=== PATIENT | male | born 1980 | race Hispanic/Latino ===

== ENCOUNTER 2018-12-17 23:09 | Emergency (ER) | payer BC ==
[~2018-12-17] VITALS: Ht 177.8 cm; Wt 68.0 kg
--- OUTSIDE RECORDS SUMMARY | 2018-12-17 23:13 | XMS REPORT | Encounter Summary ---
Author Organization Unknown Address [address] [place] [address] Phone [phone] Reason for Visit Medical Complaint Instructions 1. Allergic rhinitis allergies: care instructions rapid flu (A+B) 2. Allergic cough benzonatate 200 mg capsule prednisone 20 mg tablet Discussion Note Pt is in NAD; Verbalizes understanding of all instructions with no questions at this time. Plan of Care Patient Instructions Take fluticasone over the counter as needed for congestion. [place] one spray in each nostril twice a day. Take a warm, steamy shower, blow your nose thereafter, and spray in each nostril. Tilt your head up for about 10 seconds and breath through your mouth. Do not sniff or snort the medication in or else the medication will go to your throat and not be absorbed appropriately. Take over the counter Xyzal, zyrtec, vicky or claritin for allergy like symptoms like runny nose, sneezing and watery eyes. Take Benzonatate for cough as directed. Take steroid taper as directed and with food to avoid heartburn. Take medications as prescribed and follow up with a PCP within 2-3 if symptoms worsen as discussed. Reminders Provider Appointments None recorded. Lab Rapid Flu (A+B) 09/07/2017 [facility] Referral None recorded. Procedures None recorded. Surgeries None recorded. Imaging None recorded. Medications Name Start Date benzonatate 200 mg capsule Take 1 capsule 3 times a day by oral route as needed. prednisone 20 mg tablet take 3 tabs PO QD X 2 days, then take 2 tabs PO QD x 2 days, then take 1 tabs PO QD x 2 days. Medications Administered None recorded. Vitals Height Weight BMI Blood Pressure 5 ft 8 in 155 lbs 23.6 kg/m2 120/82 mm[Hg] Lab Results Date Name Specimen Result Interpretation Description Value Range Status Address Rapid Flu (A+B) Influenza a negative [facility]: [address] [place] [address] Influenza B negative [facility]: [facility] Allergies Code Code System Name Reaction Severity Status Onset NKDA Problems None recorded. Procedures None recorded. Vaccine List None recorded. Social History Smoking Status Never Smoker Past Encounters 09/07/2017 Allergic Rhinitis; Allergic Cough Afsaneh Watkinsroy, [facility]: [address] [place] [address], Ph. History of Present Illness Cough Reported By: Patient HPI: Location: chest, nasal/sinus. Quality: dry cough. Duration: symptoms lasting over 2 weeks. Severity: moderate. Onset/Timing: gradual. Context: no sick contacts, no foreign travel, non-smoker, allergies. Modifying factors: ; none. Associated Symptoms: no sputum production, no shortness of breath, no wheezing, no sweats, no significant weight gain, no significant weight loss, no morning cough, no sore throat, no vomiting, no diarrhea, no rash, no nausea, no fever/chills, no muscle aches, no headache; post nasal drip and dry cough [id number] Reported By: Patient HPI: Location: head/sinuses, chest. Quality: dry cough; post nasal drip. Duration: ; x 2-3 weeks. Severity: moderate. Onset/Timing: gradual. Context: no sick contacts, no foreign travel, non-smoker, allergies. Modifying factors: ; none. Associated Symptoms: no sputum production, no shortness of breath, no wheezing, no change in number of pillows needed to sleep at night, no sweats, no significant weight gain, no significant weight loss, no morning cough, no sore throat, no vomiting, no diarrhea, no rash, no nausea, no fever, no muscle aches, no headache; post nasal drip and dry cough Review of Systems:ROS as noted in the HPI Review of Systems Basic Reported By: Patient Physical Exam Adult Basic, 14-21 Yr Male, Adult Male Complete Reported By: Patient Constitutional: General Appearance: healthy-appearing, well-nourished, well-developed. Level of Distress: NAD. Ambulation: ambulating normally Psychiatric: Mental Status: active and alert. Orientation: to time, to place, to person Cob-Cvug-Nfado-Throat: Ears: no lesions on external ear, no outer ear tenderness, EACs clear, TMs clear. Hearing: no hearing loss. Nose: no lesions on external nose, nares patent, no septal deviation, nasal passages clear, no sinus tenderness, nasal discharge--rhinorrhea, post nasal drip; pale and edematous nasal turbinates bilaterally. Lips, Teeth, and Gums: no mouth or lip ulcers, no bleeding gums, normal dentition. Oropharynx: moist mucous membranes, no erythema, no exudates, tonsils not enlarged Neck: Lymph Nodes: no cervical LAD Lungs: Respiratory effort: no dyspnea, no tachypnea, no use of accessory muscles, no intercostal retractions. Auscultation: breath sounds normal Cardiovascular: Heart Auscultation: RRR, no murmurs Neurologic: Gait and Station: normal gait, normal station
--- OUTSIDE RECORDS SUMMARY | 2018-12-17 23:13 | XMS REPORT | Continuity of Care Document ---
Author Author [facility] Interface Address Unknown Phone Unavailable Problems Problem Status Onset Date Classification Date Reported Comments Source Allergic rhinitis 09/07/2017 Diagnosis 09/07/2017 [facility] Allergic cough 09/07/2017 Diagnosis 09/07/2017 [facility] Medications Medication Details Route Status Patient Instructions Ordering Provider Order Date Source benzonatate 200 MG Oral Capsule benzonatate 200 mg capsule Take 1 capsule 3 times a day by oral route as needed. Active [facility] Prednisone 20 MG Oral Tablet prednisone 20 mg tablet take 3 tabs PO QD X 2 days, then take 2 tabs PO QD x 2 days, then take 1 tabs PO QD x 2 days. Active [facility] Allergies, Adverse Reactions, Alerts Substance Category Reaction Severity Reaction type Status Date Reported Comments Source Immunizations Immunization Date Given Site Status Last Updated Comments Source Results Order Name Results Value Reference Range Date Interpretation Comments Source Influenza A negative 09/07/2017 [facility] Influenza B negative 09/07/2017 [facility] Vital Signs Vital Sign Value Date Comments Source Diastolic (mm Hg) 82 09/07/2017 [facility] Height 68 09/07/2017 [facility] Systolic (mm Hg) 120 09/07/2017 [facility] Weight 155 09/07/2017 [facility] Encounters Location Location Details Encounter Type Encounter Number Reason For Visit Attending Provider ADM Date DC Date Status Source [place] - [facility] - [id number] Ramirez, [employer]PORATE [employer]AF[employer]Y COORDINATOR[facility] [address] [facility] [place] [address], Ph. [id number] Afsaneh Ramirez 09/07/2017 [facility] Procedures Procedure Code Date Perfomer Comments Source
--- OUTSIDE RECORDS SUMMARY | 2018-12-17 23:13 | XMS REPORT | Clinical Summary ---
Author Author [facility] Address Unknown Phone Unavailable Care Team Providers Care Carbide Tool Maker Name Role Phone Duran Mayer MD PCP Allergies No Known Allergies Medications End Date Status Medication Sig Dispensed Refills Start Date Active ibuprofen (ADVIL,MOTRIN) Take 200 mg 0 200 MG tablet by mouth every 6 (six) hours as needed for mild pain. Active cetirizine (ZyrTEC) 10 MG Take 10 mg by 0 tablet mouth daily. Active dextromethorphan Take 10 mL by 0 polistirex (COUGH DM ER mouth every ORAL) 12 (twelve) hours as needed (cough). 11/07/2018 Discontinued oseltamivir (TAMIFLU) 75 TK 1 C PO BID 0 MG capsule FOR 5 DAYS 9 11/11/2018 Discontinued mouthwash compounding 15 mL by 480 mL 1 base 227 (MOUTHWASH-OM) mucous 9 mouthwash membrane route 4 (four) times a day for 10 days. 11/10/2018 Discontinued lidocaine HCl (lidocaine) 5 mL by 100 mL 2 2 % solution mucous 9 membrane route every 3 (three) hours. 11/11/2018 Discontinued lidocaine HCl (lidocaine) 5 mL by 100 mL 2 2 % solution mucous 9 membrane route every 3 (three) hours. 11/26/2018 acyclovir (ZOVIRAX) 400 Take 1 tablet 30 tablet 0 MG tablet (400 mg 9 total) by mouth 3 (three) times a day for 10 days. 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 Office Visit Family Medicine Micky Jo MD Oral mucositis (Primary Dx) 11/17/2018 Office Visit Otolaryngology RogelioarsenЮлия MA 11/16/2018 Telephone Family Medicine Duran Mayer MD Well adult health check (Primary Dx); Screen for STD (sexually transmitted disease) 11/11/2018 Office Visit Family Medicine Micky Jo MD Oral mucosal lesion (Primary Dx); Oral mucositis 11/10/2018 Office Visit Otolaryngology Duran Mayer MD Viral illness (Primary Dx) 11/07/2018 Office Visit Family Medicine Micky Jo MD Stomatitis and mucositis (Primary Dx) 11/07/2018 Office Visit Otolaryngology Micky Jo MD Oral mucosal lesion (Primary Dx) 11/03/2018 Office Visit Otolaryngology Duran Mayer MD Sore throat (Primary Dx) 11/03/2018 Office Visit Family Medicine after 12/16/2017 Family History Medical History Relation Name Comments Hypertension Father No Known Problems Mother Relation Name Status Comments Father Alive Mother Alive Social History Date Tobacco Use Types Packs/Day Years Used Never Smoker Smokeless Tobacco: Never Used Alcohol Use Drinks/Week oz/Week Comments Yes 4 Cans of 2.4 4 can a day and on the weekend more beer Sex Assigned at Date Recorded Not on file Industry Job Start Date Occupation Not on file Not on file Not on file Travel End Travel History Travel Start No recent travel history available. Last Filed Vital Signs Time Taken Vital Sign Reading 11/17/2018 3:21 PM CDT Blood Pressure 136/84 11/17/2018 3:21 PM CDT Pulse 73 11/11/2018 11:49 AM CDT Temperature 36.6 C (97.8 F) - Respiratory Rate - 11/17/2018 3:21 PM CDT Oxygen Saturation 98% - Inhaled Oxygen - Concentration 11/17/2018 3:21 PM CDT Weight 67.9 kg (149 lb 12.8 oz) 11/17/2018 3:21 PM CDT Height 172.7 cm (5' 8") 11/17/2018 3:21 PM CDT Body Mass Index 22.78 Plan of Treatment Health Maintenance Due Date Last Done Comments INFLUENZA VACCINE 11/12/2019 Postponed from 03/23/2019 (Patient Refused) Procedures Comments Procedure Name Priority Date/Time Associated Diagnosis CHLAMYDIA/N. GONORRHOEAE Routine 11/11/2018 Screen for STD (sexually RNA, TMA 12:20 PM CDT transmitted disease) HSV TYPE 1/2 COMBINED AB, Routine 11/11/2018 IGM 12:20 PM CDT HSV 1 AND 2 SPECIFIC AB Routine 11/11/2018 IGG 12:20 PM CDT HEPATITIS C ANTIBODY Routine 11/11/2018 Screen for STD (sexually 12:20 PM CDT transmitted disease) URINALYSIS, AUTOMATED Routine 11/11/2018 Screen for STD (sexually WITH MICROSCOPY 12:20 PM CDT transmitted disease) RPR TITER WITH REFLEX TO Routine 11/11/2018 Screen for STD (sexually CONFIRMATION 12:20 PM CDT transmitted disease) HIV 1/2 ANTIGEN/ANTIBODY, Routine 11/11/2018 Screen for STD (sexually FOURTH GENERATION W/RFL 12:20 PM CDT transmitted disease) PSA, TOTAL AND FREE Routine 11/11/2018 Well adult health check 12:20 PM CDT THYROID STIMULATING Routine 11/11/2018 Well adult health check HORMONE 12:20 PM CDT HEMOGLOBIN A1C Routine 11/11/2018 Well adult health check 12:20 PM CDT COMPREHENSIVE METABOLIC Routine 11/11/2018 Well adult health check PANEL 12:20 PM CDT LIPID PANEL Routine 11/11/2018 Well adult health check 12:20 PM CDT MONONUCLEOSIS SCREEN Routine 11/03/2018 Sore throat 12:00 PM CDT CBC WITH PLATELET AND Routine 11/03/2018 Sore throat DIFFERENTIAL 12:00 PM CDT POCT INFLUENZA A/B Routine 11/03/2018 Sore throat 11:53 AM CDT POCT RAPID STREP A Routine 11/03/2018 Sore throat 11:52 AM CDT after 12/16/2017 Results * CHLAMYDIA/N. GONORRHOEAE RNA, MARILU (11/11/2018 12:20 PM CDT) Chlamydia trachomatis NOT DETECTED NOT DETECTED [facility] RNA, [facility] Neisseria gonorrhoeae NOT DETECTED NOT DETECTED [facility] RNA, [facility] (Always message) Comment: [facility] This test was performed using ZOAR the APTIMA COMBO2 Assay ([employer] The analytical performance characteristics of this assay, when used to test SurePath specimens have been determined by [facility]. Narrative Performed At FASTING:YES [facility] FASTING: YES Resulting Agency Comment Performing Organization Information: Site ID: [id number] Name: [facility] Address: [address] [place] [phone] Director: Ivis Peter Performing Organization Address [facility] Cent[facility] Phone Number [facility] [address] [place] [address] * HSV 1 and 2 specific Ab IgG (11/11/2018 12:20 PM CDT) HSV 1 IgG >58.00 (H) index [facility] II HSV 2 IgG <0.90 index [facility] Comment: [facility]-LUX II Index Interpretatio n ----- - <0.90 Negative 0.90-1.0 9Equivocal >1.09 Positive This assay utilizes recombinant type-specific antigens to differentiate HSV-1 from HSV-2 infections. A positive result cannot distinguish between recent and past infection. If recent HSV infection is suspected but the results are negative or equivocal, the assay should be repeated in 4-6 weeks. The performance characteristics of the assay have not been established for pediatric populations, immunocompromised patients, or screening. Narrative Performed At FASTING:YES [facility] FASTING: YES Resulting Agency Comment Performing Organization Information: Site ID: [id number] Name: [facility] Address: [address] [place] [address] Director: Dr. Brett Mcconnell Performing Organization Address City/[facility]/Zipcode Phone Number [facility] [address] [facility] [place] [address] II * HIV 1/2 ANTIGEN/ANTIBODY, FOURTH GENERATION W/RFL (11/11/2018 12:20 PM CDT) HIV AG/AB 4th gen NON-REACTIVE NON-REACTIVE [facility] Comment: ZO[facility] HIV-1 antigen and HIV-1/HIV-2 antibodies were not detected. There is no laboratory evidence of HIV infection. PLEASE NOTE: This information has been disclosed to you from records whose confidentiality may be protected by state law.If your state requires such protection, then the state law prohibits you from making any further disclosure of the information without the specific written consent of the person to whom it pertains, or as otherwise permitted by law. A general authorization for the release of medical or other information is NOT sufficient for this purpose. For additional information please refer to http://education.agreement24 avtal24.Chirpify/faq/TJD820 (This link is being provided for informational/ educational purposes only.) The performance of this assay has not been clinically validated in patients less than 2 years old. Narrative Performed At FASTING:YES [facility] FASTING: YES Resulting Agency Comment Performing Organization Information: Site ID: [id number] Name: [facility] Address: [address] [place], [place] [id number] Director: Ivis Peter Performing Organization Address [facility] Centercode [place] [address] * RPR titer with reflex to confirmation (11/11/2018 12:20 PM CDT) RPR (dx) w/refl titer and NON-REACTIVE NON-REACTIVE [facility] confirmatory testing ZO[facility] Specimen Blood Narrative Performed At FASTING:YES [facility] FASTING: YES Resulting Agency Comment Performing Organization Information: Site ID: [id number] Name: [facility] Address: [address] [place] [phone] Director: Ivis Peter Performing Organization Address [facility] [place]ercode [place] [address] * HSV type 1/2 combined Ab, IgM (11/11/2018 12:20 PM CDT) HSV 1 IgM POSITIVE (A) [facility] HSV 2 IgM POSITIVE (A) [facility] Comment: REFERENCE RANGE: NEGATIVE The IFA procedure for measuring IgM antibodies to HSV 1 and HSV 2 detects both type-common and type- specific HSV antibodies. Thus, IgM reactivity to both HSV 1 and HSV 2 may represent crossreactive HSV antibodies rather than exposure to both HSV 1 and HSV 2. This test was developed and its analytical performance characteristics have been determined by [facility]. It has not been cleared or approved by FDA. This assay has been validated pursuant to the CLIA regulations and is used for clinical purposes. HSV 1 IgM 1:160 (H) [facility] Comment: REFERENCE RANGE: <1:20 HSV 2 IgM 1:40 (H) [facility] Comment: REFERENCE RANGE: <1:20 Narrative Performed At FASTING:YES [facility] FASTING: YES Resulting Agency Comment Performing Organization Information: Site ID: [id number] Name: [facility] Address: [address] [place] [phone] Director: Harpreet Cárdenas MD Performing Organization Address City/[facility]/Zipcode Phone Number [employer] [address] [place] [address] [phone] * Hepatitis C antibody (11/11/2018 12:20 PM CDT) Hepatitis C Ab NON-REACTIVE NON-REACTIVE [facility] Signal/cutoff 0.02 <1.00 [facility] Comment: [facility] HCV antibody was non-reactive. There is no laboratory evidence of HCV infection. In most cases, no further action is required. However, if recent HCV exposure is suspected, a test for HCV RNA (test code 08693) is suggested. For additional information please refer to http://education.agreement24 avtal24.com/faq/LBC81g2 (This link is being provided for informational/ educational purposes only.) Specimen Blood Narrative Performed At FASTING:YES [facility] FASTING: YES Resulting Agency Comment Performing Organization Information: Site ID: [id number] Name: [facility] Address: [address] [place] [phone] Director: Ivis Peter Performing Organization Address City/[facility]/Zipcode Phone Number [facility] [address] [address] * Urinalysis, automated with microscopy (11/11/2018 12:20 PM CDT) Color, UA YELLOW YELLOW [facility] Appearance CLEAR CLEAR [facility] Specific gravity, urine 1.017 1.001 - 1.035 [facility] ZOAR pH, urine < OR=5.0 5.0 - 8.0 [facility] ZOAR Glucose, urine NEGATIVE NEGATIVE [facility] Bilirubin, UA NEGATIVE NEGATIVE [facility] ZOAR Ketones, UA 1+ (A) NEGATIVE [facility] ZOAR Occult blood, urine NEGATIVE NEGATIVE [facility] ZOAR Protein, UA NEGATIVE NEGATIVE [facility] Nitrite, UA NEGATIVE NEGATIVE [facility] ZOAR Leukocyte esterase, UA NEGATIVE NEGATIVE [facility] ZOAR WBC, UA NONE SEEN < OR=5 /HPF [facility] ZOAR RBC, UA NONE SEEN < OR=2 /HPF [facility] ZOAR Squamous epithelial NONE SEEN < OR=5 /HPF [facility] cells, UA [facility] Bacteria, UA NONE SEEN NONE SEEN /HPF [facility] ZOAR Hyaline casts, UA NONE SEEN NONE SEEN /LPF [facility] Specimen Urine Narrative Performed At FASTING:YES [facility] FASTING: YES Resulting Agency Comment Performing Organization Information: Site ID: [id number] Name: [facility] Address: [address] [place] [phone] Director: Ivis Peter Performing Organization Address City/State/[place]code [place] [address] * PSA, total and free (11/11/2018 12:20 PM CDT) PSA 2.7 < OR=4.0 ng/mL [facility]-LUX II PSA, free 0.5 ng/mL [facility]-LUX II PSA, free percent 19 (L) >25 % (calc) [facility] Comment: DI[facility]NOSTICS-LUX PSA(ng/mL)Free II PSA(%) Estimated(x) Probability of Cancer(as%) 0-2.5 (*) Approx. 1 2.6-4.0(1) 0-27(2) 24(3) 4.1-10(4)0 -10 56 11-15 28 16-20 20 21-25 16 >or=26 8 >10(+) N/A >50 References:(1)Tamica et al.:Urology 60: 469-474 (2002) (2)Tamica et al.:J.Urol 168: 922-925 (2002) Fr ee PSA(%) Sensitivity(%)Specificity( %) < mi=5268 19 < mc=7392 9 (3)Catalona et al.:NESTOR 277: 2795-5603 (1996) (4)Catalona et al.:NESTOR 279: 1597-6011 (1997) (x)These estimates vary with age, ethnicity, family history and FLETCHER results. (*)The diagnostic usefulness of % Free PSA has not been established in patients with total PSA below 2.6 ng/mL (+)In men with PSA above 10 ng/mL, prostate cancer risk is determined by total PSA alone. The Total PSA value from this assay system is standardized against the equimolar PSA standard. The test result will be approximately 20% higher when compared to the WHO-standardized Total PSA (Siemens assay). Comparison of serial PSA results should be interpreted with this fact in mind. PSA was performed using the Ramón Negley Immunoassay method. Values obtained from different assay methods cannot be used interchangeably. PSA levels, regardless of value, should not be interpreted as absolute evidence of the presence or absence of disease. Specimen Blood Narrative Performed At FASTING:YES [facility] FASTING: YES Resulting Agency Comment Performing Organization Information: Site ID: [id number] Name: [facility] Address: [address] [place] [phone] Director: Dr. Brett Mcconnell Performing Organization Address City/State/Zipcode Phone Number [facility] [address] [address] II * Thyroid stimulating hormone (11/11/2018 12:20 PM CDT) TSH 0.90 0.40 - 4.50 mIU/L [facility] Specimen Blood Narrative Performed At FASTING:YES [facility] FASTING: YES Resulting Agency Comment Performing Organization Information: Site ID: [id number] Name: [facility] Address: [address] [place] [phone] Director: Ivis Peter Performing Organization Address City/State/Zipcode Phone Number [facility] [address] [address] * Hemoglobin A1c (11/11/2018 12:20 PM CDT) Hemoglobin A1C 5.6 <5.7 % of total Hgb [facility] Comment: ZOAR For the purpose of screening for the presence of diabetes: <5.7% Consistent with the absence of diabetes 5.7-6.4%Consistent with increased risk for diabetes (predi abetes) > or=6.5%Consistent with diabetes This assay result is consistent with a decreased risk of diabetes. Currently, no consensus exists regarding use of hemoglobin A1c for diagnosis of diabetes in children. According to [place] Diabetes Association (ADA) guidelines, hemoglobin A1c <7.0% represents optimal control in non- diabetic patients. Different metrics may apply to specific patient populations. Standards of Medical Care in Diabetes(ADA). Specimen Blood Narrative Performed At FASTING:YES [facility] FASTING: YES Resulting Agency Comment Performing Organization Information: Site ID: [id number] Name: [facility] Address: [address] [place] [phone] Director: Ivis Peter Performing Organization Address City/State/Zipcode Phone Number [facility] [address] [place] [address] * Lipid panel (11/11/2018 12:20 PM CDT) Cholesterol, total 144 <200 mg/dL [facility] HDL cholesterol 33 (L) >40 mg/dL [facility] Triglycerides 47 <150 mg/dL [facility] LDL cholesterol 97 mg/dL (calc) [facility] calculated Comment: ZOAR Reference range: <100 Desirable range <100 mg/dL for primary prevention; <70 mg/dL for patients with CHD or diabetic patients with > or=2 CHD risk factors. LDL-C is now calculated using the Deangelo-Micky calculation, which is a validated novel method providing better accuracy than the Friedewald equation in the estimation of LDL-C. Deangelo AGUDELO et al. NESTOR. 2013;310(19): 1880-0815 (http://education.myBarrister.Chirpify/faq/RZA536) Cholesterol/HDL ratio 4.4 <5.0 (calc) [facility] Non-HDL cholesterol 111 <130 mg/dL (calc) [facility] Comment: ZOAR For patients with diabetes plus 1 major ASCVD risk factor, treating to a non-HDL-C goal of <100 mg/dL (LDL-C of <70 mg/dL) is considered a therapeutic option. Specimen Blood Narrative Performed At FASTING:YES [facility] FASTING: YES Resulting Agency Comment Performing Organization Information: Site ID: [id number] [facility]: [facility] Address: [address] [place] [phone] Director: Ivis Peter Performing Organization Address City/[facility]/Zipcode Phone Number [facility] [address] [address] * Comprehensive metabolic panel (11/11/2018 12:20 PM CDT) Glucose 87 65 - 99 mg/dL [facility] Comment: ZOAR Fasting reference interval BUN, whole blood 12 7 - 25 mg/dL [facility] Creatinine 0.86 0.60 - 1.35 mg/dL [facility] EGFR Non-Afr. [place] Citizen 108 > OR=60 mL/min/1.73m2 [facility] Z[facility]AR EGFR 126 > OR=60 mL/min/1.73m2 [facility] ZOAR BUN/creatinine ratio NOT APPLICABLE 6 - 22 (calc) [facility] Z[facility] Sodium 141 135 - 146 mmol/L [facility] Potassium 4.1 3.5 - 5.3 mmol/L [facility] Chloride 102 98 - 110 mmol/L [facility] Z[facility] CO2 29 20 - 32 mmol/L [facility] Calcium 9.8 8.6 - 10.3 mg/dL [facility] Protein 7.6 6.1 - 8.1 g/dL [facility] Albumin, S 4.5 3.6 - 5.1 g/dL [facility] Globulin, total 3.1 1.9 - 3.7 g/dL (calc) [facility] Albumin/globulin ratio 1.5 1.0 - 2.5 (calc) [facility] Total bilirubin 0.7 0.2 - 1.2 mg/dL [facility] Alkaline phosphatase 66 40 - 115 U/L [facility] Z[facility] AST 24 10 - 40 U/L [facility] ZOAR ALT 47 (H) 9 - 46 U/L [facility] Specimen Blood Narrative Performed At FASTING:YES [facility] FASTING: YES Resulting Agency Comment Performing Organization Information: Site ID: [id number] [facility]: [facility] Address: [address] [place] [phone] Director: Ivis Peter Performing Organization Address City/[facility]/Zipcode Phone Number [facility] [address] [address] * Mononucleosis screen (11/03/2018 12:00 PM CDT) Mononucleosis NEGATIVE NEGATIVE [facility] Specimen Blood Resulting Agency Comment Performing Organization Information: Site ID: [id number] Name: [facility] Address: [address] [place] [phone] Director: Ivis Peter Performing Organization Address [facility] Phone Number [facility] [address] [place] [address] * CBC with platelet and differential (11/03/2018 12:00 PM CDT) WBC 7.2 3.8 - 10.8 Thousand/uL [facility] RBC 5.29 4.20 - 5.80 Million/uL [facility] ZOAR HGB 17.2 (H) 13.2 - 17.1 g/dL [facility] HCT 49.6 38.5 - 50.0 % [facility] MCV 93.8 80.0 - 100.0 fL [facility] MCH 32.5 27.0 - 33.0 pg [facility] MCHC 34.7 32.0 - 36.0 g/dL [facility] RDW 12.2 11.0 - 15.0 % [facility] Z[facility]AR Platelet count 220 140 - 400 Thousand/uL [facility]AR MPV 10.9 7.5 - 12.5 fL [facility] Z[facility] Neutrophils, absolute 4,450 1,500 - 7,800 cells/uL [facility] Lymphocytes, absolute 1,678 850 - 3,900 cells/uL [facility] Monocytes, absolute 1,044 (H) 200 - 950 cells/uL [facility] Eosinophils, absolute 7 (L) 15 - 500 cells/uL [facility] Basophils, absolute 22 0 - 200 cells/uL [facility] Z[facility]AR Neutrophils 61.8 % [facility] Z[facility] Lymphocytes 23.3 % [facility] Z[facility] Monocytes 14.5 % [facility] Z[facility]AR Eosinophils 0.1 % [facility] ZOAR Basophils + RC 0.3 % [facility] Specimen Blood Resulting Agency Comment Performing Organization Information: Site ID: [id number] Name: [facility] Address: [address] [place] [phone] Director: Ivis Peter Performing Organization Address City/[facility]/Zipcode Phone Number [facility] [address] [place] [address] * POC Influenza A/B (11/03/2018 11:53 AM CDT) Rapid Influenza A Ag neg Rapid Influenza B Ag neg Specimen Nasopharyngeal * POC rapid strep A (11/03/2018 11:52 AM CDT) Rapid strep A antigen Negative Negative result Specimen Swab after 12/16/2017 Insurance Payer Benefit Subscriber ID Type Phone Address Plan / Group BCBS BCBS xxxxxxxxxxxx PPO CHOICE PPO/SYBIL MOSS PPO Advance Directives Patient has advance care planning documents on file. For more information, dee villar contact: Albino Kong [address] [facility] [address]
--- NOTE | 2018-12-18 00:18 | Diagnostic Imaging Report ---
SHOULDER RIGHT COMPLETE - 3 views HISTORY: Pain COMPARISON: None available. FINDINGS: Bones: No acute displaced fracture. Osseous alignment is within normal limits. Joints: Mild inferior displacement of the acromion relation to the clavicle, suggestive of acromioclavicular dissociation/injury. Soft tissues: The soft tissues appear unremarkable. IMPRESSION: Mild inferior displacement of the acromion relation to the clavicle, suggestive of acromioclavicular dissociation/injury. Signed by: Dr. Mickie Matamoros M.D. on 12/18/2018 12:14 AM
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
[2018-12-18 00:39] LABS: BILIRUBIN,URINE NEGATIVE (NEGATIVE); CLARITY,URINE CLEAR (CLEAR); COLOR,URINE YELLOW (YELLOW); KETONES,URINE TRACE (NEGATIVE); LEUKOCYTE ESTERASE ,URINE NEGATIVE (NEGATIVE); NITRITE,URINE NEGATIVE (NEGATIVE); PROTEIN,URINE DIPSTICK NEGATIVE (NEGATIVE); URINE UROBILINOGEN 0.2 mg/dL (0.2 - 1)
[2018-12-18 00:48] LABS: EPITHELIAL CELLS,URINE FEW /LPF; RBC,URINE 0-5 /HPF (0-5); WBC,URINE (MAN) 0-5 /HPF (0-5)
== END 2018-12-18 00:57 | disposition home or self-care (01) ==
LOC: ER 23:09
DX: M25.511 Pain in right shoulder (principal); S43.101A Unspecified dislocation of right acromioclavicular joint, initial encounter; S40.211A Abrasion of right shoulder, initial encounter; S80.211A Abrasion, right knee, initial encounter; V86.55XA Driver of 3- or 4- wheeled all-terrain vehicle (ATV) injured in nontraffic accident, initial encounter; Y92.830 Public park as the place of occurrence of the external cause
CPT/HCPCS: 72040; 81001; 99284